=== PATIENT | female | born 1985 | race African-American/Black ===

== ENCOUNTER → 2018-09-16 10:43 | Outpatient (CLI) | payer OTHER, SELFPAY | PROVIDERS: Visit Provider Physician Assistant | DX: N89.8 Other specified noninflammatory disorders of vagina (principal) | CPT/HCPCS: 87210 ==

== ENCOUNTER → 2019-12-27 15:03 | Outpatient (CLI) | payer OTHER, SELFPAY ==
--- NOTE | 2019-12-27 15:07 | DI.US.S_ITS ---
PROCEDURE: US OB <= 14 WEEKS FETUS INDICATIONS: INITIAL US FOR DATING AND VIABILITY OUTSIDE/PRIOR DATING DATA: Last menstrual period (LMP): 10/01/19. LMP-based estimated date of delivery (HENRY): 07/07/20. First dating scan (date and location): 12/27/19. Estimated date of delivery (HENRY) from first dating scan: 07/16/20. TECHNIQUE: Real-time scanning was performed of the fetus and maternal pelvic organs, with image documentation. Endovaginal scanning was also performed to better visualize the fetus and maternal ovaries. COMPARISON: None. FINDINGS: Embryo: [place]-rump length measures 4.4 mm corresponding to 11 weeks 1 day heart rate measures 171 beats per minute. Measurement variability in dating: +/- 4 weeks by LMP, +/- 7 days by mean sac diameter (use before 6 weeks gestation if crown-rump length not able to be measured), +/- 5 days by crown-rump length (up to 8 weeks 6 days gestation), +/- 7 days by crown-rump length (up to 13 weeks 6 days gestation). Maternal organs: Right ovary not visualized. Normal left ovary.. Limited images through the kidneys demonstrate no hydronephrosis. IMPRESSION: 11 week 1 day single living IUP corresponding to ultrasound HENRY of 07/16/20. Dictated by: Vladimir BERRY Interpreted: Flora Torres MD on 12/27/2019 at 15:49 Approved by: Flora Torres M.D. on 12/27/2019 at 17:14
== END ==
PROVIDERS: Referring Provider Obstetrics & Gynecology; Visit Provider Obstetrics & Gynecology
DX: Z34.81 Encounter for supervision of other normal pregnancy, first trimester (principal); Z3A.11 11 weeks gestation of pregnancy
CPT/HCPCS: 76801

== ENCOUNTER → 2020-01-26 10:56 | Outpatient (CLI) | payer OTHER, SELFPAY ==
[2020-01-26 11:37] LABS: Appearance Urine UA CLEAR; Bilirubin Urine UA NEGATIVE (NEGATIVE); Color Urine UA YELLOW; Glucose Urine UA NEGATIVE (Negative); Ketones Urine UA NEGATIVE (NEGATIVE); Leukocyte Esterase Urine UA NEGATIVE (NEGATIVE); Nitrite Urine UA NEGATIVE (Negative); Occult Blood Urine UA NEGATIVE (Negative); Protein Urine UA NEGATIVE (Negative); Urobilinogen Urine UA 0.2 E.U./dL (0.2)
[2020-01-26 11:55] LABS: Add Manual Diff / Slide Review NO; Basophils Absolute Auto 0 /uL (0-100); Basophils Percent Auto 0.4 % (0-2); Eosinophils Absolute Auto 0 /uL (0-450); Eosinophils Percent Auto 0.5 % (2-4); Hematocrit 37.4 % (36-46); Hemoglobin 12.8 g/dL (12.0-16.0); Lymphocytes Absolute Auto 1500 /uL (1100-4500); Lymphocytes Percent Auto 17.2 % (25-40); Mean Corpuscular HGB Conc 34.3 % (30-36); Mean Corpuscular Hemoglobin 31.7 PG (26-34); Mean Corpuscular Volume 92.4 fL (80-100); Monocytes Absolute Auto 400 /uL (0-900); Monocytes Percent Auto 4.9 % (3-14); Neutrophils Absolute Auto 6800 /uL (1500-7000); Platelet Count 299 X10^3/uL (150-400); Red Blood Cell Count 4.05 X10^6/uL (4.0-5.2); Red Cell Distribution Width 12.3 % (11.6-14.8); White Blood Cell Count 8.8 X10^3/uL (4.5-11.0)
[2020-01-27 07:06] LABS: RPR Screen Non Reactive (Non Reactive)
[2020-01-27 08:08] LABS: Varicella IgG Antibody 2420 index (Immune >165)
[2020-01-27 15:35] LABS: Hepatitis B Surface Antigen NEGATIVE s/c (NEGATIVE); Rubella Antibody IgG 51.8 IU/mL (>15)
[2020-01-27 15:53] LABS: HIV 1 & 2 Ab/Ag 4th Gen Combo NEGATIVE (NEGATIVE)
[2020-01-27 16:49] LABS: Hep C Virus Ab w/Reflex Quant NEGATIVE s/c (NEGATIVE)
== END ==
PROVIDERS: PCP Obstetrics & Gynecology; Referring Provider Obstetrics & Gynecology; Visit Provider Obstetrics & Gynecology
DX: Z34.81 Encounter for supervision of other normal pregnancy, first trimester (principal)
CPT/HCPCS: 36415; 80055; 81003; 86787; 86803; 86850; 86900; 86901; 87086; 87389

== ENCOUNTER → 2020-02-21 07:42 | Outpatient (CLI) | payer OTHER, SELFPAY ==
--- NOTE | 2020-02-21 07:44 | DI.US.S_ITS ---
PROCEDURE: US OB >= 14 WEEKS FETUS INDICATIONS: ANATOMY OUTSIDE/PRIOR DATING DATA: Last menstrual period (LMP): 10/01/19. LMP-based estimated date of delivery (HENRY): 07/07/20. First dating scan (date and location): 12/27/19. Estimated date of delivery (HENRY) from first dating scan: 07/16/20. TECHNIQUE: Real-time scanning was performed of the fetus, with image documentation and biometric measurements. Endovaginal scanning: Not needed COMPARISON: None. FINDINGS: General: A single living intrauterine gestation is present. Presentation: Transverse head right. Placenta: Placental position is posterior, without previa. Amniotic fluid index: 14.4 cm, normal range is 5-24 cm. heart rate: 150 beats per minute. Maternal cervical canal: 4.4 cm long. Normal lower limit is 2.5 cm. biometrics: Biparietal diameter: 4.5 cm, 19 weeks 4 days Head circumference: 16.3 cm, 19 weeks 0 days Abdominal circumference: 13.3 cm, 18 weeks 6 days Femur length: 2.8 cm, 18 weeks 4 days Estimated gestational age from initial scan: not applicable. Composite gestational age from present scan: 19 weeks 0 days Estimated weight and percentile: 255 g, 24th percentile Measurement variability for biometric dating: +/- 7 days from 14 weeks to 15 weeks 6 days gestation, +/- 10 days from 16 weeks to 21 weeks 6 days gestation, +/- 2 weeks from 22 weeks to 27 weeks 6 days gestation, +/- 3 weeks for 28 weeks gestation or later. weight reference: 4500 g or EFW >90/95% is considered macrosomia or large for gestational age. EFW <10% is small for gestational age. EFW 5% or less is considered intra-uterine growth restriction. Anatomic survey: Neuro: Ventricles are non-dilated at less than 10 mm. Cisterna magna is normal at 3-11 mm. Cerebellum is normal in size and morphology. Nuchal skin fold: Normal at less than 6 mm between 14-21 weeks gestational age. Face: Nose and lips, facial profile are not well seen due to positioning. Spine: No evidence for spina bifida. Heart: 4-chambered heart is present, with normal ventricular outflow tracts. Diaphragm: Diaphragm is intact. Stomach: Left-sided stomach is present. Kidneys: No hydronephrosis. Normal is less than 5 mm in 2nd trimester, less than 7 mm in 3rd trimester. Cord: 3-vessel cord has orthotopic insertion. Bladder: Normal in size. Extremities: All 4 extremities identified. IMPRESSION: Appropriate interval growth, no anomaly seen. The facial region was relatively poorly seen due to positioning. If clinically desired a followup limited anatomic survey completion scan could be performed in approximately one week. The delivery date is projected be centered on 07/16/20. Dictated by: Dale Ordoñez M.D. on 02/21/2020 at 9:47 Approved by: Dale Ordoñez M.D. on 02/21/2020 at 9:53
== END ==
PROVIDERS: PCP Obstetrics & Gynecology; Referring Provider Obstetrics & Gynecology; Visit Provider Obstetrics & Gynecology
DX: Z34.82 Encounter for supervision of other normal pregnancy, second trimester (principal); Z3A.19 19 weeks gestation of pregnancy
CPT/HCPCS: 76811

== ENCOUNTER → 2020-04-21 15:35 | Outpatient (CLI) | payer OTHER, SELFPAY ==
[2020-04-21 17:30] LABS: Hematocrit 32.5 % (36-46); Hemoglobin 11.1 g/dL (12.0-16.0)
[2020-04-21 17:37] LABS: GTT (PREG) 1 Hour PP 50gm Dose 134 mg/dL (76-139)
== END ==
PROVIDERS: PCP Obstetrics & Gynecology; Referring Provider Obstetrics & Gynecology; Visit Provider Obstetrics & Gynecology
DX: Z34.82 Encounter for supervision of other normal pregnancy, second trimester (principal); Z3A.23 23 weeks gestation of pregnancy
CPT/HCPCS: 82950; 85014; 85018

== ENCOUNTER → 2020-06-13 16:15 | Outpatient (CLI) | payer OTHER, SELFPAY ==
[2020-06-14 19:27] LABS: Strep Grp B PCR NEG for Grp B Strep
--- NOTE | 2020-07-21 10:19 | PM.OBTRLD ---
[facility] Medical History (Updated 12/24/19 @ 14:46 by Katia Jacob RN) Abnormal Pap smear of cervix (Resolved 2013) Depression (Acute) Febrile seizure (Acute) Thumb fracture (Acute) Vaginal delivery (Resolved) Surgical History (Updated 12/24/19 @ 14:46 by Katia Jacob, ADRIENNE) [place] teeth removed (Acute ~2005) Family History (Updated 12/24/19 @ 14:42 by Katia Jacob RN) Mother No problems noted. Father Hypertension Grandfather Tuberculosis Grandmother No problems noted. Grandfather Diabetes mellitus Myocardial infarction Grandmother Cancer Social History marital status: number of children: 1 household members: spouse and children pets and animals: Yes (Outdoor cats) occupational status: employed ([employer]) current occupational exposures/hazards: No special radha needs: No Smoking Status: Current some day smoker (once in a while So takes a puff) Tobacco: How many years used: 12 quit status: not considering quitting second hand exposure: Yes ( smokes and aware) alcohol intake: former (pre- : occasional) substance use type: does not use Evaluation Evaluation Laboratory results: Laboratory Tests 06/13/20 16:15 Group B Strep (PCR) Neg for grp b strep
== END ==
PROVIDERS: PCP Obstetrics & Gynecology; Visit Provider Obstetrics & Gynecology
DX: Z34.83 Encounter for supervision of other normal pregnancy, third trimester (principal); Z3A.35 35 weeks gestation of pregnancy
CPT/HCPCS: 87653

== ENCOUNTER 2020-07-21 10:27 | Outpatient (CLI) | payer OTHER, SELFPAY ==
--- NOTE | 2020-07-21 11:07 | PM.OBTRLD ---
Visit Information Visit Information Date of evaluation: 07/21/20 Primary OB Provider: Radhika Romero Reason for Evaluation: Yes non-stress test Comments/Additional reasons for admission: Patient is a 34yo @40+5 sent for NST as part of routine postdates testing. Vital Signs Vital Signs: 116/70, HR 80 PFSH Medical History Abnormal Pap smear of cervix (Resolved 2013) Depression (Acute) Febrile seizure (Acute) Thumb fracture (Acute) Vaginal delivery (Resolved) Surgical History [place] teeth removed (Acute ~2004) Family History Mother No problems noted. Father Hypertension Grandfather Tuberculosis Grandmother No problems noted. Grandfather Diabetes mellitus Myocardial infarction Grandmother Cancer Social History marital status: number of children: 1 household members: spouse and children pets and animals: Yes (Outdoor cats) occupational status: employed ([employer]) current occupational exposures/hazards: No special radha needs: No Smoking Status: Current some day smoker (once in a while So takes a puff) Tobacco: How many years used: 12 quit status: not considering quitting second hand exposure: Yes ( smokes and aware) alcohol intake: former (pre- : occasional) substance use type: does not use Review of Systems Constitutional Constitutional: Reports system reviewed and no additional complaints, except as documented Evaluation Evaluation Baseline heart rate: 135 Variability: Moderate (11-25) monitor accelerations: Present monitor decelerations: Early (x1) Contraction Frequency (minutes): 5 Category of Tracing: Reactive Diagnosis, Plan/Disposition Plan/Disposition Plan: Home with routine precautions. OB Disposition: home
[2020-07-21 11:30] LABS: COVID19 -Nasal RAPID Negative (Negative)
== END 2020-07-21 11:15 | disposition home or self-care (01) ==
LOC: LABOR 11:36 → OB 07-24 16:28
PROVIDERS: PCP Obstetrics & Gynecology; Referring Provider Obstetrics & Gynecology; Visit Provider Obstetrics & Gynecology
DX: O48.0 Post-term pregnancy (principal); Z3A.40 40 weeks gestation of pregnancy; Z11.59 Encounter for screening for other viral diseases
CPT/HCPCS: 59025; 87635; G0378; G0379

== ENCOUNTER 2020-07-24 10:03 | Inpatient (IN) | payer OTHER, SELFPAY ==
[2020-07-24] MEDS: LACTATED RINGERS 1,000 ML 100 ML IV ×4 (10:39→17:02)
[2020-07-24] MEDS: OXYTOCIN PREMIX 30 UNIT/500 ML PLAST..BAG IV (10:40)
[2020-07-24 10:57] VITALS: BP 130/84
[2020-07-24 11:01] LABS: Add Manual Diff / Slide Review NO; Basophils Absolute Auto 100 /uL (0-100); Basophils Percent Auto 1.5 % (0-2); Eosinophils Absolute Auto 0 /uL (0-450); Eosinophils Percent Auto 0.2 % (2-4); Hematocrit 36.2 % (36-46); Hemoglobin 12.1 g/dL (12.0-16.0); Lymphocytes Absolute Auto 2300 /uL (1100-4500); Lymphocytes Percent Auto 23.5 % (25-40); Mean Corpuscular HGB Conc 33.5 % (30-36); Mean Corpuscular Hemoglobin 31.6 PG (26-34); Mean Corpuscular Volume 94.4 fL (80-100); Monocytes Absolute Auto 400 /uL (0-900); Monocytes Percent Auto 4.4 % (3-14); Neutrophils Absolute Auto 7000 /uL (1500-7000); Neutrophils Percent Auto 70.4 % (50-75); Platelet Count 294 X10^3/uL (150-400); Red Blood Cell Count 3.83 X10^6/uL (4.0-5.2); Red Cell Distribution Width 13.4 % (11.6-14.8); White Blood Cell Count 9.9 X10^3/uL (4.5-11.0)
--- NOTE | 2020-07-24 11:04 | PM.OBHP.1 ---
OB HPI Date/Time Date of admission: 07/24/20 Date Patient Seen: 07/24/20 Time Patient Seen: 11:04 History of Present Condition Chief complaint: Induction : 2 Para: 1 Estimated Date of Delivery: 07/16/20 Estimated Gestational Age (weeks): 41 Narrative: So Cardoza is a 34 year old 001 at 41 weeks 1 day presenting for postdates induction. Patient reports feeling well with few contractions, no loss of fluid or vaginal bleeding, good movement, no other complaints obstetrical or otherwise. Patient has had an uncomplicated , though with advanced cervical dilation since 38 weeks. Patient has a history of prior vacuum assisted vaginal delivery 9 years ago, for a just under 6 lb baby. Patient reports this is after 45 minutes of pushing and due to patient fatigue. She has no other contributory medical, surgical, or family history. Indications Indication for induction OB: post dates History of Present care: good care, initiated at week # (11), number of visits (16) and pounds weight gain (27) Dating criteria: based on 1st trimester US only Ultrasounds: normal 1st trimester US and normal mid trimester US Obstetrical complications: none Medical complications: none Preadmission Labs -: GBS status: negative, HBsAG: negative, HIV: negative and RPR/VDLR: negative -: Rubella: immune and Varicella: immune Sequential screen: initially interested in quad screen but did not get blood draw during window. Urine: wnl 1 hr GTT: 134 Prior (ies) History: G1: 02/06/11, VAVD, 38+5, 5#14, F Evaluation Evaluation Baseline heart rate: 135 Variability: Moderate (11-25) monitor accelerations: Present monitor decelerations: Absent Category of Tracing: Reactive Cervical dilation (cm): 5 Cervical effacement (%): 100 station: -1 Laboratory results: Laboratory Tests 07/24/20 10:58 WBC 9.9 RBC 3.83 L Hgb 12.1 Hct 36.2 MCV 94.4 MCH 31.6 MCHC 33.5 RDW 13.4 Plt Count 294 Neut % (Auto) 70.4 Lymph % (Auto) 23.5 L [place] % (Auto) 4.4 Eos % (Auto) 0.2 L Baso % (Auto) 1.5 Neut # (Auto) 7000 Lymph # (Auto) 2300 [place] # (Auto) 400 Eos # (Auto) 0 Baso # (Auto) 100 PFSH Medical History Abnormal Pap smear of cervix (Resolved 2013) Depression (Acute) Febrile seizure (Acute) Thumb fracture (Acute) Vaginal delivery (Resolved) Surgical History [place] teeth removed (Acute ~2004) Family History Mother No problems noted. Father Hypertension Grandfather Tuberculosis Grandmother No problems noted. Grandfather Diabetes mellitus Myocardial infarction Grandmother Cancer Social History marital status: number of children: 1 household members: spouse and children pets and animals: Yes (Outdoor cats) occupational status: employed ([employer]) current occupational exposures/hazards: No special radha needs: No Smoking Status: Current some day smoker Tobacco: How many years used: 12 quit status: not considering quitting second hand exposure: Yes ( smokes and aware) alcohol intake: former (pre- : occasional) substance use type: does not use Meds Home Medications and Allergies Home Medications Medication Instructions Recorded Confirmed Type prenat.vits,adarsh,wmj-[id number] 1 tab PO DAILY 12/24/19 07/24/20 History Allergies Allergy/AdvReac Type Severity Reaction Status Date / Time No Known Drug Allergies Allergy Verified 07/21/20 09:59 Review of Systems Constitutional Constitutional: Reports system reviewed and no additional complaints, except as documented Cardiovascular Cardiovascular: Reports system reviewed and no additional complaints, except as documented Respiratory Respiratory: Reports system reviewed and no additional complaints, except as documented Gastrointestinal Gastrointestinal: Reports system reviewed and no additional complaints, except as documented Genitourinary Genitourinary: Reports system reviewed and no additional complaints, except as documented Neurologic Neurologic: Reports system reviewed and no additional complaints, except as documented Exam Vital Signs (past 8 hours): -130/84, HR 94 07/24/20 10:57 Blood Pressure 130/84 Const General: cooperative, healthy appearing and comfortable Resp Effort & Inspection: normal respiratory effort Auscultation: clear to auscultation bilaterally Cardio Rate: regular rate Rhythm: regular rhythm GI Palpation: soft and No tender External Female Exam: normal external appearance Extrem General: normal to inspection Objective Labs Result Diagrams: 07/24/20 10:58 Labs: Laboratory Results - last 24 hr 07/24/20 10:58 WBC 9.9 RBC 3.83 L Hgb 12.1 Hct 36.2 MCV 94.4 MCH 31.6 MCHC 33.5 RDW 13.4 Plt Count 294 Neut % (Auto) 70.4 Lymph % (Auto) 23.5 L [place] % (Auto) 4.4 Eos % (Auto) 0.2 L Baso % (Auto) 1.5 Neut # (Auto) 7000 Lymph # (Auto) 2300 [place] # (Auto) 400 Eos # (Auto) 0 Baso # (Auto) 100 Assessment and Plan Assessment and Plan Assessment and Plan narrative: This patient presents for induction of labor. The patient has advanced cervical dilation, and will be for a room after return of her lab results. - cEFM, toco - IV fluids running - repeat GBS due to interval since last exam - covid negative - anticipate vaginal delivery
[2020-07-24 11:57] LABS: Strep Grp B PCR NEG for Grp B Strep
--- NOTE | 2020-07-24 14:33 | P.PNOB_ITS ---
Date/Time Date Patient Seen: 07/24/20 Time Patient Seen: 14:33 Pain Control Pain control: other (Spinal, patient tolerating pain and pressure poorly) Pelvic Exam Dilation (cm): 10 Effacement (%): 100 station: +2 Amniotic membrane status: Ruptured Contractions Pitocin rate (mU/min): 0 Contraction frequency (min): 3 Status status: Category ll Heart Rate Baseline: 135 Monitor Accelerations: Present Monitor Decelerations: Recurrent (Variable and late) Monitor Variability: Moderate Assessment and Plan Plan: Comments: This patient presented for induction of labor. The patient presented at approximately 10:15 a.m., matthias Q 3-4. Pitocin was started and the patient remained comfortable. As she had advanced cervical dilation at baseline, AROM was performed for clear fluid. In half an hour after AROM, the patient progressed rapidly to fully dilated and became quite uncomfortable. A spinal was placed, as the patient was progressing rapidly, stooling with contractions, thought to be about to deliver. After the spinal, the patient was more comfortable was found to be in in +1 presentation. Pushing began, with poor maternal effort. After some coaching, the patient made improved effort, with no descent of the vertex past 2+ presentation and increasing caput. The fetus tolerated contractions with [place] variable decelerations, though with return to a baseline of 135 with moderate variability in between or during breaks in pushing. After 2 hours of pushing, the patient voiced a desire for assisted , either from below or via section. The patient was asse ssed by myself and Dr. Vazquez and thought to be a candidate for neither vacuum or forceps delivery, due to the lack of mobility of the presenting part and the rest of descent. Primary section was discussed with the patient her partner, including the risk of infection, bleeding, damage to bowel bladder, and risks to future pregnancies. The patient vocalized understanding, informed consent was obtained.
--- NOTE | 2020-07-24 14:33 | PM.PREOP ---
Pre-operative Note COVID-19 COVID-19 status: Negative Result date/Date tested (Pos, Neg/Pending): 07/24/20 Interval Note History & Physical reviewed/Exam performed by Physician: Yes Changes to H&P: No
[2020-07-24] MEDS: CEFAZOLIN 2 GM/100 ML FROZ.PIGGY IV (14:44)
--- NOTE | 2020-07-24 15:18 | SUR.OPER ---
Supine on Padded OR bed, head on pillow, safety belt at thigh, arms secured on padded arm boards at <90 degrees abduction. Bump under right buttock. Legs uncrossed with pillow under knees, gel pad to heels, tape over blanket to lower legs.
--- NOTE | 2020-07-24 15:30 | SUR.OPER ---
FHTs 135, cord blood x2 and placenta sent to L&D with OB nurse, TOB live male at 1525.
[2020-07-24] MEDS: AZITHROMYCIN 500 MG in DEXTROSE 5% IN WATER 250 ML IV (15:34)
[2020-07-24] MEDS: ACETAMINOPHEN IV 1,000 MG/100 ML VIAL 400 MG IV (15:36)
[2020-07-24 16:15] VITALS: BP 96/51; PULSE 76; RESP 19; TEMP 35.9; O2SAT 97
[2020-07-24 16:20] VITALS: BP 96/52; PULSE 77; RESP 17; O2SAT 97
--- NOTE | 2020-07-24 16:22 | P.OP_ITS ---
Operative Date/Time/Diagnoses Date of procedure: 07/24/20 Time of procedure: 15:10 Pre-op diagnosis: arrest of descent, intolerance of labor Post-op diagnosis: same Procedure & Clinicians Procedure: primary section Same procedure as scheduled: Yes Indications: cat 2 EFM, arrest of descent with pushing Surgeon: Radhika Romero Learning Disabilities Resource Teacher: Shahnaz Vazquez Anesthesia Type: Spinal Operative Notes Findings: normal uterus, tubes, ovaries. Male in OP, asynclitic presentation. Apgars 8+9. weight 7#8. Closure Type: primary Applied: catheter Estimated Blood Loss (mL): 700 Blood products transfused: none Procedure in detail: EBL: 700 cc Fluids:1550ccs UOP: 50ccs of yellow urine Findings: Male infant in cephalic, OP presentation, Apgars 8+9, weight 7#8, normal uterus, tubes, ovaries. Procedures: The patient was taken to the operating room where spinal anesthesia was placed. She was prepped and draped in the normal sterile fashion in the dorsal supine position with a leftward tilt. A Pfannenstiel skin incision was made with a scalpel and carried through to the underlying layer of fascia. The fascia was incised in the midline and the incision extended laterally with [place] scissors. The superior aspect of this incision was grasped with Ivonne clamps, elevated. and the underlying rectus muscles dissected off bluntly and with curved [place] scissors. Attention was then turned to the inferior aspect of this incision which, in a similar fashion, was grasped, tented up with the Ivonne clamps, and the rectus muscles dissected off bluntly. The rectus muscles were then in the midline, and the peritoneum identified, tented up, and entered sharply with Metzenbaum scissors. The peritoneal incision was extended superiorly and inferiorly with good visualization of the bladder. The bladder blade was inserted and the vesico uterine peritoneum identified, grasped with pickups, and entered sharply with the Metzenbaum scissors. This incision was extended laterally, and the bladder flap created digitally. The bladder blade was then reinserted and the lower uterine segment incised in transverse fashion with the scalpel. The uterine incision was bluntly extended laterally. The bladder blade was removed, and the infant's head delivered atraumatically with a push up from below. The cord was clamped and cut. The nose and mouth were suctioned as needed with a bulb synringe, and the was handed off to awaiting pediatricians. The placenta was then removed spontaneously, and the uterus was exteriorized and cleared of all clots and debris. The uterine incision was repaired with 1-0 chromic in a running, locked fashion and a 2nd layer of the same suture was used to obtain excellent hemostasis. The uterus was returned to the abdomen, and the gutters were cleared of all clots and debris. The bladder flap was closed with 2-0 Vicryl in a running fashion. The peritoneum was closed with 3-0 Vicryl, and the fascia reapproximated with 0 Vicryl in a running fashion. The subcutaneous layer was placed with 3 0 Vicryl in an interrupted fashion and the skin was closed with 4-0 biosyn in a running fashion. The patient tolerated the procedure well sponge lap and needle counts were correct x2. 2 g of Ancef and 500 mg of azithromycin were given at commencement of the case, and a vaginal prep performed with Betadine as well as the abdominal prep. The patient was taken to the recovery room in stable condition. Complications: none Post-operative Condition: stable Disposition: PACU Plan for aftercare: Routine postop care.
[2020-07-24 16:25] VITALS: BP 105/52; PULSE 80; RESP 20; O2SAT 97
[2020-07-24 16:30] VITALS: BP 99/45; PULSE 82; RESP 16; TEMP 35.7; O2SAT 96
[2020-07-24 16:35] VITALS: BP 99/48; PULSE 82; RESP 12; O2SAT 96
--- NOTE | 2020-07-24 16:36 | SUR.PHASEI ---
Report called to Gagandeep Norris&D RN 5 minutes ago, pt stable and will get ready to transfer
[2020-07-24] MEDS: KETOROLAC 30 MG/ML VIAL IV (21:40)
[2020-07-24] MEDS: LANOLIN OINT 7 GM 1 APPLIC TOP (23:51)
[2020-07-24] MEDS: ONDANSETRON 4 MG/2 ML INJ IV (23:52)
[2020-07-25] MEDS: OXYCODONE IR 5 MG TABLET PO ×4 (00:50→20:12)
[2020-07-25] MEDS: KETOROLAC 30 MG/ML VIAL IV ×2 (03:48→10:01)
[2020-07-25] MEDS: LACTATED RINGERS 1,000 ML 100 ML IV (03:48)
--- NOTE | 2020-07-25 08:05 | PM.OBPN.1 ---
Subjective - OB Subjective Patient comments: no complaints, pain well controlled and tolerating diet baby status: doing well feeding status: exclusively breast feeding Date Patient Seen: 07/25/20 Interval history: Patient with good pain control, moderate lochia, mid VT, passing flatus, tolerating PO, no other complaints. Exam Vital Signs (past 8 hours): VSS Oxygen Delivery Method Room Air Resp Effort & Inspection: normal respiratory effort Auscultation: clear to auscultation bilaterally Cardio Rate: regular rate Rhythm: regular rhythm GI Inspection: incision (c/d/i) Palpation: soft and tender Other: fundus firm, below u Objective Labs Result Diagrams: 07/25/20 10:40 Labs: Laboratory Results - last 24 hr 07/24/20 07/24/20 07/24/20 10:58 10:58 10:58 WBC 9.9 RBC 3.83 L Hgb 12.1 Hct 36.2 MCV 94.4 MCH 31.6 MCHC 33.5 RDW 13.4 Plt Count 294 Neut % (Auto) 70.4 Lymph % (Auto) 23.5 L [place] % (Auto) 4.4 Eos % (Auto) 0.2 L Baso % (Auto) 1.5 Neut # (Auto) 7000 Lymph # (Auto) 2300 [place] # (Auto) 400 Eos # (Auto) 0 Baso # (Auto) 100 Group B Strep (PCR) Neg for grp b strep Blood Type O Positive Antibody Screen Negative Assessment & Plan Plan day: 1 plan OB: routine postop care Comments: Patient meeting postop goals appropriately, for routine postop care. Time Spent With Patient Time: Total time spent is greater than 50% in coordination of care (as documented) at patient's floor/unit and/or counseling patient: Time with patient: less than 15 minutes
[2020-07-25] MEDS: DOCUSATE 250 MG CAPSULE PO (08:43)
[2020-07-25 08:44] VITALS: TEMP 36.9
[2020-07-25] MEDS: PRENATAL VIT,CALC/IRON/FOLIC 1 TABLET 1 TAB PO (10:01)
[2020-07-25 10:49] LABS: Add Manual Diff / Slide Review NO; Basophils Absolute Auto 0 /uL (0-100); Basophils Percent Auto 0.3 % (0-2); Eosinophils Absolute Auto 0 /uL (0-450); Eosinophils Percent Auto 0.1 % (2-4); Hematocrit 28.4 % (36-46); Hemoglobin 9.5 g/dL (12.0-16.0); Lymphocytes Absolute Auto 1600 /uL (1100-4500); Lymphocytes Percent Auto 10.2 % (25-40); Mean Corpuscular HGB Conc 33.4 % (30-36); Mean Corpuscular Volume 92.8 fL (80-100); Monocytes Absolute Auto 900 /uL (0-900); Monocytes Percent Auto 5.5 % (3-14); Neutrophils Absolute Auto 13600 /uL (1500-7000); Neutrophils Percent Auto 83.9 % (50-75); Platelet Count 243 X10^3/uL (150-400); Red Blood Cell Count 3.07 X10^6/uL (4.0-5.2); Red Cell Distribution Width 13.1 % (11.6-14.8); White Blood Cell Count 16.2 X10^3/uL (4.5-11.0)
[2020-07-25] MEDS: IBUPROFEN 600 MG TABLET PO (18:12)
[2020-07-26] MEDS: IBUPROFEN 600 MG TABLET PO ×2 (00:50→07:05)
[2020-07-26] MEDS: ACETAMINOPHEN 325 MG TABLET 650 MG PO ×2 (07:05→13:37)
[2020-07-26 07:56] VITALS: BP 111/67; PULSE 76; RESP 12; TEMP 36.9
--- NOTE | 2020-07-26 10:03 | P.DS_ITS ---
Discharge Providers Provider Date of admission: 07/24/20 10:03 Discharge Date: 07/26/20 Primary care physician: Radhika Romero MD Consults: 07/24/20 16:46 Consult to [employer] Routine Comment: Discharge provider: Radhika Romero MD Summary Hospital Course Date Patient Seen: 07/26/20 Time Patient Seen: 10:04 Procedures: primary section Hospital Course: This patient was admitted for induction of labor for postdates and advanced c ervical dilation. Pitocin was started, and she underwent AROM. She received spinal for anesthesia, and after rapid active 1st stage, progressed to fully dilated. After 2 hours 2nd stage, she was noted to have arrested at +2 station, with category 2 tracing. position was not amenable to operative delivery, and she was taken for primary section. The procedure was uncomplicated, and she was delivered of a healthy baby boy, 7 lb 8 oz, OP presentation. Her intraoperative and postoperative course were uneventful, and she was discharged on postoperative day 2 with routine precautions. Peripartum Data Delivery Method: Section Procedures: Primary section complications: none 1: Gender: Male Disposition of : home Status at Discharge Cognitive/behavioral status at discharge: oriented Functional status at discharge: independent ambulation Overall status at discharge: patient is progressing back to baseline Time Spent with Patient Time attestation: Total time spent providing and/or coordinating discharge services: Time spent: Greater than 30 minutes Objective Labs Result Diagrams: 07/25/20 10:40 Labs: Laboratory Results - last 24 hr 07/25/20 10:40 WBC 16.2 H D RBC 3.07 L Hgb 9.5 L Hct 28.4 L MCV 92.8 MCH 31.0 MCHC 33.4 RDW 13.1 Plt Count 243 Neut % (Auto) 83.9 H Lymph % (Auto) 10.2 L [place] % (Auto) 5.5 Eos % (Auto) 0.1 L Baso % (Auto) 0.3 Neut # (Auto) 13988 H Lymph # (Auto) 1600 [place] # (Auto) 900 Eos # (Auto) 0 Baso # (Auto) 0 Exam Vital Signs (past 8 hours): 111/67, HR 76, T 98.5F 07/26/20 07:56 Temperature 98.5 F Pulse Rate 76 Respiratory Rate 12 Blood Pressure 111/67 Oxygen Delivery Method Room Air Narrative Exam Narrative: Patient ambulating about exam room. Reports good pain control, tolerating p.o., flatus, voiding, moderate lochia, no other complaints. Const General: cooperative, healthy appearing and comfortable Resp Effort & Inspection: normal respiratory effort Auscultation: clear to auscultation bilaterally Cardio Rate: regular rate Rhythm: regular rhythm GI Inspection: distended (Mild, tympanic) and incision (Clean, dry, covered by Aquacel) Palpation: soft and No tender Other: Fundus firm, well below U Skin General: no rashes or lesions noted Extrem General: normal to inspection Discharge Plan Discharge Plan Patient Disposition: Home Discharge orders & Medications Prescriptions: New docusate sodium 100 mg capsule 100 mg PO BID Qty: 60 RF: 0 oxycodone 5 mg tablet 5 mg PO Q8H PRN (Reason: pain) Qty: 14 RF: 0 Continued prenat.vits,adarsh,[id number] Tablet 1 tab PO DAILY RF: 0 Follow up/Referrals: Radhika Romero MD [Primary Care Provider] - 1 Week (incision check) Diet/Activity/Treatments Diet: Regular Activity: Nothing in the vagina for 6 weeks. Avoid heavy lifting for 6 weeks. If you have increasing bleeding, fevers, chills, nausea, vomiting, headaches, or any other concerning symptoms, call or come to the emergency room. Skin/Wound/Dressing Care Report to your healthcare provider any signs of infection, such as:: chills, fever, night sweats, increased pain, unusual drainage and unusual redness Visit Report/Discharge Packet Instructions: DI for Visit Report Forms: Patient Portal/API, Stroke Signs & Symptoms Discharge Data Primary Care Provider: Radhika Romero
[2020-07-26] MEDS: OXYCODONE IR 5 MG TABLET PO (13:37)
== END 2020-07-26 15:05 | disposition home or self-care (01) | DRG 788 ==
PROVIDERS: Admitting Provider Obstetrics & Gynecology; PCP Obstetrics & Gynecology; Referring Provider Obstetrics & Gynecology; Visit Provider Obstetrics & Gynecology
PROC: 10D00Z1 Extraction of Products of Conception, Low, Open Approach (ICD-10-PCS; CPT 59514; principal; 2020-07-24 14:45)
DX: O48.0 Post-term pregnancy (principal); Z3A.41 41 weeks gestation of pregnancy; Z37.0 Single live birth; O62.1 Secondary uterine inertia; O76 Abnormality in fetal heart rate and rhythm complicating labor and delivery
CPT/HCPCS: 01967; 01968; 59050; 59510; 59514; 85025; 86850; 86900; 86901; 87081; 87653; G0379; J0131; J0690; J1885; J2274; J2405; J2590

== ENCOUNTER → 2020-08-03 11:27 | Outpatient (CLI) | payer OTHER, SELFPAY | PROVIDERS: PCP Obstetrics & Gynecology; Visit Provider Physician Assistant | DX: R30.0 Dysuria (principal) | CPT/HCPCS: 87077; 87086 ==

== ENCOUNTER → 2020-08-11 07:18 | Outpatient (CLI) | payer OTHER, SELFPAY ==
[2020-08-11 10:32] LABS: Appearance Urine UA SL CLOUDY; Bilirubin Urine UA NEGATIVE (NEGATIVE); Color Urine UA YELLOW; Glucose Urine UA NEGATIVE (Negative); Ketones Urine UA NEGATIVE (NEGATIVE); Leukocyte Esterase Urine UA 2+ (NEGATIVE); Nitrite Urine UA NEGATIVE (Negative); Occult Blood Urine UA 3+ (Negative); Protein Urine UA NEGATIVE (Negative); Urobilinogen Urine UA 0.2 E.U./dL (0.2)
[2020-08-11 11:02] LABS: pH Urine UA 5.5 (4.5-8.0)
[2020-08-11 11:09] LABS: Bacteria Urine Many (>30); Culture Indicated Urine Specimen Cultured; Mucus Urine 2+ (Negative); RBC Urine 30-100/HPF (0-5/HPF); Transitional Epi Cells Urine 1-5/HPF (0-5/HPF); WBC Urine 30-100/HPF (0-5/HPF)
== END ==
PROVIDERS: Referring Provider Obstetrics & Gynecology; Visit Provider Obstetrics & Gynecology
DX: N39.0 Urinary tract infection, site not specified (principal)
CPT/HCPCS: 81001; 87086

== ENCOUNTER → 2022-05-20 07:48 | Outpatient (CLI) | payer OTHER, SELFPAY | PROVIDERS: Visit Provider Student in an Organized Health Care Education/Training Program | DX: R30.0 Dysuria (principal) | CPT/HCPCS: 87077; 87086; 87186 ==

== ENCOUNTER → 2022-07-10 11:39 | Outpatient (CLI) | payer OTHER, SELFPAY | PROVIDERS: Visit Provider Nurse Practitioner Family | DX: N89.8 Other specified noninflammatory disorders of vagina (principal); R30.0 Dysuria | CPT/HCPCS: 87086; 87210 ==

== ENCOUNTER → 2023-04-15 11:03 | Outpatient (CLI) | payer OTHER, SELFPAY | PROVIDERS: Visit Provider Student in an Organized Health Care Education/Training Program | DX: R30.0 Dysuria (principal) | CPT/HCPCS: 87077; 87086; 87186 ==

== ENCOUNTER → 2023-05-20 15:16 | Outpatient (CLI) | payer OTHER, SELFPAY | PROVIDERS: Visit Provider Student in an Organized Health Care Education/Training Program | DX: N39.0 Urinary tract infection, site not specified (principal) | CPT/HCPCS: 87086 ==

== ENCOUNTER → 2023-10-12 15:40 | Outpatient (CLI) | payer OTHER, SELFPAY | PROVIDERS: Visit Provider Registered Nurse | DX: R30.0 Dysuria (principal) | CPT/HCPCS: 87077; 87086; 87186 ==

== ENCOUNTER 2024-01-06 13:01 | Emergency (ER) | payer OTHER, SELFPAY ==
[2024-01-06 13:07] VITALS: BP 152/65; PULSE 94; RESP 20; TEMP 36.6; O2SAT 100; BMI 21.9
--- NOTE | 2024-01-06 13:25 | DI.US.S_ITS ---
PROCEDURE: US OB <= 14 WEEKS FETUS INDICATIONS: spotting, LMP 11/22/2023; 6w4d OUTSIDE/PRIOR DATING DATA: Last menstrual period (LMP): November 22, 2023. LMP-based estimated date of delivery (HENRY): Not provided. Estimated date of delivery (HENRY) from first dating scan: Not applicable. TECHNIQUE: Real-time scanning was performed of the fetus and maternal pelvic organs, with image documentation. Endovaginal scanning was also performed to better visualize the fetus and maternal ovaries. COMPARISON: None. FINDINGS: Embryo: No intrauterine identified. No gestational sac, yolk sac or pole identified. Maternal organs: Uterus is anteverted. Uterus measures 9.4 x 4.9 x 5.2 centimeters. Endometrial complex measures 17.9 millimeters in thickness. Uterus echotexture is homogeneous. Right ovary measures 3.4 x 3.2 x 1.7 centimeters. There is a 1.4 x 0.9 x 1.1 centimeter complex cyst in the right ovary. Left ovary measures 2.2 x 3.2 x 1.2 centimeters. Left ovary is sonographically normal. Doppler evaluation demonstrates normal vascular flow in the ovaries. IMPRESSION: No intrauterine identified. Findings could be secondary to early , nonviable or occult ectopic . Recommend close clinical observation, correlation with serial beta HCG and short-term follow-up obstetrical ultrasound in 1-2 weeks. 1.4 x 0.9 x 1.1 centimeter complex right ovarian cyst. Finding could represent corpus luteal cyst or early ectopic . Recommend close clinical observation, correlation with serial beta HCG and short-term follow-up obstetrical ultrasound in 1-2 weeks. Dictated by: Yvonne Sheehan MD, PhD on 01/06/2024 at 14:35 Approved by: Yvonne Sheehan MD, PhD on 01/06/2024 at 14:40
--- NOTE | 2024-01-06 13:30 | ED_ITS ---
HPI - <Peggy Hebert PA-C - Last Filed: 01/06/24 20:25> General Chief complaint: Vaginal Bleeding Stated complaint: couple wks , spotting Time Seen by Provider: 01/06/24 13:24 Source: patient Mode of arrival: Ambulatory History of Present Illness HPI Narrative: 38yo F presents with concern for light spotting and mild pelvic cramping, LMP Nov 22, which was a normal period for her; had a positive home test on December 27. Patient states that she has had 2 live births, last year she had an at 7 weeks, and in the last 5 years she also had what she believes was a miscarriage as she had a late period that lasted for a long time and was heavy although she never had a positive test. Patient states that her current is desired. Last night she had a couple drops of dark blood in her underwear, she had nothing overnight but then later this morning had some additional spotting she says the blood was still dark red in color. Most recently when she wiped after peeing she says there was ?a bit more blood? on the toilet paper; she has not wearing a pad and has not had any persistent bleeding. She has also had some very mild cramping this morning it feels similar to light menstrual cramps. She has otherwise been in her usual state of health eating and drinking normally with no constipation diarrhea nausea or vomiting. She denies any overt abdominal pain or any heavy bleeding also denies dizziness lightheadedness. Related Data Previous Rx's Medication Instructions Recorded desogestrel-e.estradiol 0.15 See Rx Instructions .Route 09/18/ mg-0.02 mg(21)/e.estrad 0.01 mg(5) .COMPLEX #84 tabs tablet (Volnea (28)) Allergies Allergy/AdvReac Type Severity Reaction Status Date / Time No Known Drug Allergies Allergy Verified 01/06/24 13:12 Review of Systems <Peggy Hebert PA-C - Last Filed: 01/06/24 20:25> Review of Systems Narrative: See HPI Exam <Peggy Hebert PA-C - Last Filed: 01/06/24 20:25> Narrative Exam Narrative: GENERAL: [38] year old patient appears stated age. Well-developed patient, in mild distress. HEAD: Atraumatic. Normocephalic. EYES: Pupils equal round and reactive. Extraocular motions intact. No scleral icterus. No injection or drainage. ENT: Nose without bleeding, purulent drainage. Airway patent. NECK: Trachea midline. CARDIOVASCULAR: Regular rate and rhythm without murmurs, gallops, or rubs. RESPIRATORY: Clear to auscultation. Breath sounds equal bilaterally. No wheezes, rales, or rhonchi. GASTROINTESTINAL: Abdomen soft, there is very mild tenderness over the pelvis midline/suprapubic otherwise non-tender, nondistended. EXTREMITIES: No edema or joint tenderness. BACK:No flank tenderness. NEURO: AOx3. SKIN: No rash or erythema of visible areas Initial Vital Signs Initial Vital Signs: Vital Signs Temperature 98 F 01/06/24 13:07 Pulse Rate 94 H 01/06/24 13:07 Respiratory Rate 20 01/06/24 13:07 Blood Pressure 152/65 H 01/06/24 13:07 Pulse Oximetry 100 01/06/24 13:07 Oxygen Delivery Method Room Air 01/06/24 13:07 <Mary Anne Velasquez DO - Last Filed: 01/08/24 07:42> Initial Vital Signs Initial Vital Signs: Vital Signs Temperature 98 F 01/06/24 13:07 Pulse Rate 94 H 01/06/24 13:07 Respiratory Rate 20 01/06/24 13:07 Blood Pressure 152/65 H 01/06/24 13:07 Pulse Oximetry 100 01/06/24 13:07 Oxygen Delivery Method Room Air 01/06/24 13:07 Course <Peggy Hebert PA-C - Last Filed: 01/06/24 20:25> Orders Ordered: ED Orders 01/06/24 13:25 US pelvic complete Stat 01/06/24 13:28 Beta HCG, Quant [HCG Quantitative /Beta subunit] Stat Complete Blood Count AUTO DIFF Stat Comprehensive Metabolic Panel Stat Vital Signs Vital signs: Vital Signs - 8 hr 01/06/24 13:07 01/06/24 15:10 Temperature 98 F Pulse Rate 94 H 91 H Respiratory Rate 20 16 Blood Pressure 152/65 H 106/63 Pulse Oximetry 100 100 Oxygen Delivery Method Room Air Room Air <DO Olivia Goodrich Last Filed: 01/08/24 07:42> Orders Ordered: ED Orders 01/06/24 13:25 US pelvic complete Stat 01/06/24 13:28 Beta HCG, Quant [HCG Quantitative /Beta subunit] Stat Complete Blood Count AUTO DIFF Stat Comprehensive Metabolic Panel Stat Vital Signs Vital signs: Vital Signs - 8 hr 01/06/24 13:07 01/06/24 15:10 Temperature 98 F Pulse Rate 94 H 91 H Respiratory Rate 20 16 Blood Pressure 152/65 H 106/63 Pulse Oximetry 100 100 Oxygen Delivery Method Room Air Room Air MDM - OB/Uterine Contractions <Peggy Hebert PA-C - Last Filed: 01/06/24 20:25> Differential Diagnosis Differential diagnosis: Likely other (spotting in 1st trimester, incomplete , ectopic , non-viable , early ) Medical Records Attestation: I reviewed the patient's medical records. Lab Data Attestation: I reviewed the patient's lab results. 01/06/24 13:28 01/06/24 13:28 Labs: Lab Results 01/06/24 Range/Units 13:28 WBC 12.2 H (4.5-11.0) X10^3/uL RBC 4.41 (4.0-5.2) X10^6/uL Hgb 13.5 (12.0-16.0) g/dL Hct 41.1 (36-46) % MCV 93.3 (80-100) fL MCH 30.5 (26-34) PG MCHC 32.7 (30-36) % RDW 12.7 (11.6-14.8) % Plt Count 303 (150-400) X10^3/uL Neut % (Auto) 76.2 H (50-75) % Lymph % (Auto) 16.8 L (25-40) % [place] % (Auto) 6.4 (3-14) % Eos % (Auto) 0.4 L (2-4) % Baso % (Auto) 0.2 (0-2) % Neut # (Auto) 9300 H (6837-4499) /uL Lymph # (Auto) 2100 (5533-8651) /uL [place] # (Auto) 800 (0-900) /uL Eos # (Auto) 100 (0-450) /uL Baso # (Auto) 0 (0-100) /uL Sodium 138 (137-145) mmol/L Potassium 3.9 (3.4-5.1) mmol/L Chloride 105 (98-107) mmol/L Carbon Dioxide 25 (22-32) mmol/L BUN 12 (7-17) mg/dL Creatinine 0.55 (0.52-1.04) mg/dL Estimated GFR > 60 (>60) mL/min BUN/Creatinine Ratio 21.8 (6-22) Glucose 85 (70-100) mg/dL Calcium 9.0 (8.4-10.2) mg/dL Total Bilirubin 0.8 (0.2-1.3) mg/dL AST 31 (14-36) IU/L ALT 17 (<35) IU/L Alkaline Phosphatase 60 (38-126) U/L Total Protein 8.2 (6.3-8.2) g/dL Albumin 4.7 (3.5-5.0) g/dL Globulin 3.5 (1.7-4.1) g/dL Albumin/Globulin Ratio 1.3 (1.0-2.8) HCG, Quant 967.3 mIU/mL Urine Dip Bedside Urine Glucose Negative Bedside Urine Bilirubin - Negative Bedside Urine Ketone - Negative Urine Specific Snyder 1.030 Bedside Urine Occult Blood +++ Bedside Urine pH 5.5 Bedside Urine Protein - Negative Bedside Urine Urobilinogen - Negative Bedside Urine Nitrite - Negative Bedside Urine Leukocytes - Negative Esterase Imaging Data US - OB: My Impression: Agree with Radiology interpretation Radiologist's Impression: [place] [address] Ultrasound Report Signed Patient: So Cardoza MR#: [id number] : 1985 Acct:[id number] Age/Sex: 38 / F Date of Service: 01/06/24 Loc: ED Accession Number: [id number] Procedure: US pelvic complete Ordering Provider: Peggy Hebert P.A-C PROCEDURE: US OB <= 14 WEEKS FETUS INDICATIONS: spotting, LMP 11/22/2023; 6w4d OUTSIDE/PRIOR DATING DATA: Last menstrual period (LMP): November 22, 2023. LMP-based estimated date of delivery (HENRY): Not provided. Estimated date of delivery (HENRY) from first dating scan: Not applicable. TECHNIQUE: Real-time scanning was performed of the fetus and maternal pelvic organs, with image documentation. Endovaginal scanning was also performed to better visualize the fetus and maternal ovaries. COMPARISON: None. FINDINGS: Embryo: No intrauterine identified. No gestational sac, yolk sac or pole identified. Maternal organs: Uterus is anteverted. Uterus measures 9.4 x 4.9 x 5.2 centimeters. Endometrial complex measures 17.9 millimeters in thickness. Uterus echotexture is homogeneous. Right ovary measures 3.4 x 3.2 x 1.7 centimeters. There is a 1.4 x 0.9 x 1.1 centimeter complex cyst in the right ovary. Left ovary measures 2.2 x 3.2 x 1.2 centimeters. Left ovary is sonographically normal. Doppler evaluation demonstrates normal vascular flow in the ovaries. IMPRESSION: No intrauterine identified. Findings could be secondary to early , nonviable or occult ectopic . Recommend close clinical observation, correlation with serial beta HCG and short-term follow-up obstetrical ultrasound in 1-2 weeks. 1.4 x 0.9 x 1.1 centimeter complex right ovarian cyst. Finding could represent corpus luteal cyst or early ectopic . Recommend close clinical observation, correlation with serial beta HCG and short-term follow-up obstetrical ultrasound in 1-2 weeks. Dictated by: Yvonne Sheehan MD, PhD on 01/06/2024 at 14:35 Approved by: Yvonne Sheehan MD, PhD on 01/06/2024 at 14:40 MDM Narrative Medical decision making narrative: This is a well-appearing the somewhat anxious and concerned 38-year-old female who presents with concern for light spotting beginning last night in the context of positive test with last period 6 weeks ago. Labs ordered including CBC CMP and hCG quant, urine dip. Her CBC does not indicate significant blood loss, she has a mild leukocytosis consistent with early ; urine dip and other labs are unremarkable except for hCG see below. Ultrasound is also ordered and returns with no evidence of an IUP. Radiologist felt this could represent early , nonviable or possibly ectopic; note was made of a complex cyst in the right ovary possibly representing a corpus luteum versus ectopic. Patient's hCG was at 967 today. Pelvic exam is deferred as patient has only very mild crampy pelvic pain/no discharge and no significant pelvic bleeding. Discussed with the patient the potential cause of not seeing anything on her ultrasound today and counseled her the importance of having follow-up hCG level drawn in 2-3 days' time as well as following closely with PCP or dispatch coordinator for repeat ultrasound and further care; counseled the patient regarding symptoms to watch out for that could suggest internal bleeding or developing ectopic. Patient was previously seen here by Ob however that OB provider has left this hospital, she was advised to contact the dispatch coordinator office number here as she is a previous patient here and we hope she can be seen by another provider at this facility. Advised she may go to urgent care or return to emergency department for repeat labs/imaging if no other option available. Return precautions provided, follow-up plan discussed, all questions answered. <Mary Anne Velasquez, - Last Filed: 01/08/24 07:42> Lab Data Labs: Lab Results 01/06/24 Range/Units 13:28 WBC 12.2 H (4.5-11.0) X10^3/uL RBC 4.41 (4.0-5.2) X10^6/uL Hgb 13.5 (12.0-16.0) g/dL Hct 41.1 (36-46) % MCV 93.3 (80-100) fL MCH 30.5 (26-34) PG MCHC 32.7 (30-36) % RDW 12.7 (11.6-14.8) % Plt Count 303 (150-400) X10^3/uL Neut % (Auto) 76.2 H (50-75) % Lymph % (Auto) 16.8 L (25-40) % [place] % (Auto) 6.4 (3-14) % Eos % (Auto) 0.4 L (2-4) % Baso % (Auto) 0.2 (0-2) % Neut # (Auto) 9300 H (0045-1124) /uL Lymph # (Auto) 2100 (9757-9353) /uL [place] # (Auto) 800 (0-900) /uL Eos # (Auto) 100 (0-450) /uL Baso # (Auto) 0 (0-100) /uL Sodium 138 (137-145) mmol/L Potassium 3.9 (3.4-5.1) mmol/L Chloride 105 (98-107) mmol/L Carbon Dioxide 25 (22-32) mmol/L BUN 12 (7-17) mg/dL Creatinine 0.55 (0.52-1.04) mg/dL Estimated GFR > 60 (>60) mL/min BUN/Creatinine Ratio 21.8 (6-22) Glucose 85 (70-100) mg/dL Calcium 9.0 (8.4-10.2) mg/dL Total Bilirubin 0.8 (0.2-1.3) mg/dL AST 31 (14-36) IU/L ALT 17 (<35) IU/L Alkaline Phosphatase 60 (38-126) U/L Total Protein 8.2 (6.3-8.2) g/dL Albumin 4.7 (3.5-5.0) g/dL Globulin 3.5 (1.7-4.1) g/dL Albumin/Globulin Ratio 1.3 (1.0-2.8) HCG, Quant 967.3 mIU/mL Urine Dip Bedside Urine Glucose Negative Bedside Urine Bilirubin - Negative Bedside Urine Ketone - Negative Urine Specific Snyder 1.030 Bedside Urine Occult Blood +++ Bedside Urine pH 5.5 Bedside Urine Protein - Negative Bedside Urine Urobilinogen - Negative Bedside Urine Nitrite - Negative Bedside Urine Leukocytes - Negative Esterase Discharge Plan Departure Patient Disposition: Home Clinical Impression: Elevated serum hCG, Vaginal bleeding Activity Restrictions/Additional Instructions: *You have been diagnosed with [elevated serum hCG] *What to do: *Please continue to take your regular medications as directed. [ ] New medication prescriptions sent to your pharmacy: [ ] [ ] New medication written as a paper prescription [ X] No new medications given *Please follow up with your primary care provider in 2-3 days, call for an appointment. Let them know you were seen in the Emergency Department and that we ask that you be seen in follow up. We will electronically transmit a record of today's note if your PCP is in our system. You had a positive home test recently, we checked your blood levels of hCG today and they were 967. The ultrasound did not show anything within your uterus, which either means that it is too early in your for anything to be visible on ultrasound, or that this is a non viable that did not form a structure that is visible in the uterus. The last possibility is that you have something called an ectopic which means that is forming outside of the uterus. This last possibility is concerning as if this is the case it can cause significant symptoms and be life-threatening if it has not treated, at this point in time the recommendation is for you to have a repeat ultrasound in 1-2 weeks' time, and you should have your hCG blood levels rechecked in 2-3 days' time. You can do this with your primary care provider or your OB/women's health provider if you have 1 that you see currently. It is important to get your hCG levels rechecked so we can see if they are rising falling or staying the same as this will help to determine what is going on with the . If you do develop heavy bleeding or symptoms from heavy bleeding such as dizziness lightheadedness you should call 911 or seek re-evaluation in the emergency department. Similarly if you develop severe abdominal pain. Otherwise please follow-up as discussed above as you will need this additional labs and imaging in order to track the status of the and determine whether or not this is simply an early , a nonviable or an ectopic . *If you do not have a primary care provider please contact the [facility] Resource line at [phone]. They will ask some questions about your medical history and help get you set up with a doctor in the community. *Return to Emergency Department if you should have any new, worsening or concerning symptoms, such as [fever greater than 101 F, shaking chills, worsening pain, persistent vomiting or other bothersome symptoms] Prescriptions: No Action desog-e.estradiol/e.estradiol [Volnea (28)] 0.15-0.02 mgx21 /0.01 mg x 5 tablet See Rx Instructions .ROUTE .COMPLEX Qty: 84 4RF Dose Instruction: take one tablet by mouth DAILY for contraception; Take once daily at same time every day. Rx Instructions: take one tablet by mouth DAILY for contraception; Take once daily at same time every day. Referrals: Miscellaneous,Doctor, MD [Primary Care Provider] - Stand Alone Forms: Patient Portal/API ED Sign-out <Mary Anne Velasquez DO - Last Filed: 01/08/24 07:42> Cosign ED Attending Holly Attestation: I was available for consultation.
[2024-01-06 13:36] LABS: Add Manual Diff / Slide Review NO; Basophils Absolute Auto 0 /uL (0-100); Basophils Percent Auto 0.2 % (0-2); Eosinophils Absolute Auto 100 /uL (0-450); Eosinophils Percent Auto 0.4 % (2-4); Hematocrit 41.1 % (36-46); Hemoglobin 13.5 g/dL (12.0-16.0); Lymphocytes Absolute Auto 2100 /uL (1100-4500); Lymphocytes Percent Auto 16.8 % (25-40); Mean Corpuscular HGB Conc 32.7 % (30-36); Mean Corpuscular Hemoglobin 30.5 PG (26-34); Mean Corpuscular Volume 93.3 fL (80-100); Monocytes Absolute Auto 800 /uL (0-900); Monocytes Percent Auto 6.4 % (3-14); Neutrophils Absolute Auto 9300 /uL (1500-7000); Neutrophils Percent Auto 76.2 % (50-75); Platelet Count 303 X10^3/uL (150-400); Red Blood Cell Count 4.41 X10^6/uL (4.0-5.2); Red Cell Distribution Width 12.7 % (11.6-14.8); White Blood Cell Count 12.2 X10^3/uL (4.5-11.0)
[2024-01-06 13:58] LABS: Alanine Aminotransferase 17 IU/L (<35); Albumin 4.7 g/dL (3.5-5.0); Albumin Globulin Ratio 1.3 (1.0-2.8); Alkaline Phosphatase 60 U/L (38-126); Aspartate Aminotransferase 31 IU/L (14-36); BUN Creatinine Ratio 21.8 (6-22); Bilirubin Total 0.8 mg/dL (0.2-1.3); Blood Urea Nitrogen 12 mg/dL (7-17); Carbon Dioxide 25 mmol/L (22-32); Chloride 105 mmol/L (98-107); Estimated Glomerular Filt Rate > 60 mL/min (>60); Globulin 3.5 g/dL (1.7-4.1); Glucose 85 mg/dL (70-100); Potassium 3.9 mmol/L (3.4-5.1); Sodium 138 mmol/L (137-145); Total Protein 8.2 g/dL (6.3-8.2)
[2024-01-06 14:00] LABS: HEMOLYSIS 62 (0-50)
[2024-01-06 14:14] LABS: HCG Quantitative /Beta subunit 967.3 mIU/mL
[2024-01-06 15:10] VITALS: BP 106/63; PULSE 91; RESP 16; O2SAT 100
== END 2024-01-06 15:57 | disposition home or self-care (01) ==
PROVIDERS: Emergency Provider Student in an Organized Health Care Education/Training Program
DX: O20.9 Hemorrhage in early pregnancy, unspecified (principal); Z3A.01 Less than 8 weeks gestation of pregnancy; R79.89 Other specified abnormal findings of blood chemistry
CPT/HCPCS: 36415; 76830; 76856; 80053; 81003; 84702; 85025; 99284

== ENCOUNTER → 2024-01-08 10:19 | Outpatient (CLI) | payer OTHER, SELFPAY ==
[2024-01-08 11:28] LABS: HCG Quantitative /Beta subunit 307.1 mIU/mL
== END ==
PROVIDERS: Referring Provider Specialist; Visit Provider Specialist
DX: O26.859 Spotting complicating pregnancy, unspecified trimester (principal)
CPT/HCPCS: 36415; 84702

== ENCOUNTER → 2024-01-25 09:18 | Outpatient (CLI) | payer OTHER, SELFPAY | PROVIDERS: Visit Provider Nurse Practitioner Family | DX: R30.0 Dysuria (principal) | CPT/HCPCS: 87077; 87086; 87186 ==

== ENCOUNTER → 2024-01-26 14:28 | Outpatient (CLI) | payer OTHER, SELFPAY ==
[2024-01-26 15:53] LABS: HCG Quantitative /Beta subunit < 2.4 mIU/mL
== END ==
PROVIDERS: Referring Provider Specialist; Visit Provider Specialist
DX: O03.4 Incomplete spontaneous abortion without complication (principal)
CPT/HCPCS: 36415; 84702

== ENCOUNTER → 2024-05-18 14:50 | Outpatient (CLI) | payer OTHER, SELFPAY | PROVIDERS: Visit Provider Physician Assistant Surgical | DX: R30.0 Dysuria (principal) | CPT/HCPCS: 87077; 87086; 87147 ==

== ENCOUNTER → 2024-06-15 14:30 | Outpatient (CLI) | payer OTHER, SELFPAY | PROVIDERS: Visit Provider Nurse Practitioner Family | DX: R30.0 Dysuria (principal) | CPT/HCPCS: 87077; 87086; 87186 ==

== ENCOUNTER → 2024-09-21 15:13 | Outpatient (CLI) | payer OTHER, SELFPAY | PROVIDERS: Visit Provider Physician Assistant Medical | DX: J02.9 Acute pharyngitis, unspecified (principal); N92.6 Irregular menstruation, unspecified | CPT/HCPCS: 87070 ==

== ENCOUNTER → 2024-11-25 11:15 | Outpatient (CLI) | payer OTHER, SELFPAY | PROVIDERS: Visit Provider Student in an Organized Health Care Education/Training Program | DX: N94.9 Unspecified condition associated with female genital organs and menstrual cycle (principal); R30.0 Dysuria | CPT/HCPCS: 87077; 87086; 87186; 87210 ==

== ENCOUNTER → 2025-02-01 10:12 | Outpatient (CLI) | payer OTHER, SELFPAY ==
--- NOTE | 2025-02-01 10:13 | DI.US.S_ITS ---
PROCEDURE: US OB <= 14 WEEKS FETUS INDICATIONS: Dating and viability OUTSIDE/PRIOR DATING DATA: Last menstrual period (LMP): November 11, 2024 LMP-based estimated date of delivery (HENRY): August 18, 2025. First dating scan (date and location): February 01, 2025 and [facility]. Estimated date of delivery (HENRY) from first dating scan: August 16, 2025. TECHNIQUE: Real-time scanning was performed of the fetus and maternal pelvic organs, with image documentation. COMPARISON: None FINDINGS: Embryo: There is a single living intrauterine gestation with an approximate age of 12 weeks and 1 day based on crown-rump length. Heart rate: 152 beats per minute Maternal organs: Ovaries are unremarkable. IMPRESSION: Single living intrauterine gestation with an age of 12 weeks and 1 day +/-1 week based on crown-rump length. We strive to produce accurate, complete, and clear reports of imaging services. To assist us in improving patient care, this report was composed using standard report templates and voice recognition software. Therefore, it may contain abnormal punctuation, insertions and/or omissions. Occasional wrong-word or sound-alike substitutions may occur. Though we review the report and make efforts to correct it, we do recommend that the report be read carefully in proper context to recognize any text inaccuracies. Dictated by: Donny Francisco M.D. on 02/01/2025 at 11:14 Approved by: Donny Francisco M.D. on 02/01/2025 at 11:22
== END ==
LOC: US 10:12
PROVIDERS: Referring Provider Student in an Organized Health Care Education/Training Program; Visit Provider Student in an Organized Health Care Education/Training Program
DX: Z34.81 Encounter for supervision of other normal pregnancy, first trimester (principal); Z3A.12 12 weeks gestation of pregnancy
CPT/HCPCS: 76801

== ENCOUNTER → 2025-04-01 11:25 | Outpatient (CLI) | payer OTHER, SELFPAY ==
[2025-04-01 12:27] LABS: Add Manual Diff / Slide Review NO; Basophils Absolute Auto 0 /uL (0-100); Basophils Percent Auto 0.2 % (0-2); Eosinophils Absolute Auto 0 /uL (0-450); Eosinophils Percent Auto 0.3 % (2-4); Hematocrit 34.5 % (36-46); Hemoglobin 11.9 g/dL (12.0-16.0); Lymphocytes Absolute Auto 1700 /uL (1100-4500); Lymphocytes Percent Auto 20.4 % (25-40); Mean Corpuscular HGB Conc 34.6 % (30-36); Mean Corpuscular Hemoglobin 32.4 PG (26-34); Mean Corpuscular Volume 93.6 fL (80-100); Monocytes Absolute Auto 400 /uL (0-900); Monocytes Percent Auto 4.9 % (3-14); Neutrophils Absolute Auto 6300 /uL (1500-7000); Neutrophils Percent Auto 74.2 % (50-75); Platelet Count 300 X10^3/uL (150-400); Red Blood Cell Count 3.68 X10^6/uL (4.0-5.2); Red Cell Distribution Width 12.3 % (11.6-14.8); White Blood Cell Count 8.5 X10^3/uL (4.5-11.0)
[2025-04-02 09:09] LABS: Varicella IgG Antibody Reactive (Non Reactive)
[2025-04-02 15:23] LABS: Hep C Virus Ab w/Reflex Quant NEGATIVE s/c (NEGATIVE); Hepatitis B Surface Antigen NEGATIVE s/c (NEGATIVE)
[2025-04-02 15:24] LABS: HIV 1 & 2 Ab/Ag 4th Gen Combo NEGATIVE (NEGATIVE); Rubella Antibody IgG 48.2 IU/mL (>15)
== END ==
PROVIDERS: Referring Provider Student in an Organized Health Care Education/Training Program; Visit Provider Student in an Organized Health Care Education/Training Program
DX: Z34.80 Encounter for supervision of other normal pregnancy, unspecified trimester (principal)
CPT/HCPCS: 36415; 80055; 86787; 86803; 86850; 86900; 86901; 87086; 87389

== ENCOUNTER → 2025-04-26 14:51 | Outpatient (CLI) | payer OTHER, SELFPAY ==
--- NOTE | 2025-04-26 14:52 | DI.US.S_ITS ---
PROCEDURE: US OB >= 14 WEEKS FETUS INDICATIONS: 20 week anatomy scan OUTSIDE/PRIOR DATING DATA: Last menstrual period (LMP): 11/21/2024. LMP-based estimated date of delivery (HENRY): 08/18/2025. First dating scan (date and location): 02/01/2025. Estimated date of delivery (HENRY) from first dating scan: 08/18/2025. TECHNIQUE: Real-time scanning was performed of the fetus, with image documentation and biometric measurements. Endovaginal scanning: COMPARISON: [facility], US, US OB >= 14 WEEKS FETUS, 07/21/2020, 10:11. FINDINGS: General: A single living intrauterine gestation is present. Presentation: Variable. Placenta: Placental position is anterior , without previa. Normal >2 cm. Low lying is <2 cm to the edge. Previa covers the internal os. Amniotic fluid index: 18.4 cm, normal range is 5-24 cm. Single deepest vertical pocket is 4.8 cm. heart rate: 147 beats per minute. Maternal cervical canal: 5.9 cm long. Normal lower limit is 2.5 cm. Report any funneling of internal cervical os: % of canal length, shape (U or V), width or any U-shaped funneling. biometrics: Biparietal diameter: 5.9 Head circumference: 21.8 Abdominal circumference: 18.2 Femur length: 4.2 Clinically estimated gestational age: 23 weeks 5 days Composite gestational age from present scan: 23 weeks 5 days Estimated weight and percentile: 592 g Anatomic survey: Neuro: Ventricles are non-dilated at less than 10 mm. Cisterna magna is normal at 3-11 mm. Cerebellum is normal in size and morphology. Nuchal skin fold: Normal at less than 6 mm between 14-21 weeks gestational age. Face: Nose and lips, facial profile are normal. Spine: No evidence for spina bifida. Heart: 4-chambered heart is present, with normal ventricular outflow tracts. Diaphragm: Diaphragm is intact. Stomach: Left-sided stomach is present. Kidneys: No hydronephrosis. Normal is less than 5 mm in 2nd trimester, less than 7 mm in 3rd trimester. Cord: 3-vessel cord has orthotopic insertion. Bladder: Normal in size. Extremities: All 4 extremities identified. There is limited imaging of the four-chamber heart, outflow tracts and profile secondary to position. IMPRESSION: Single live intrauterine corresponds with an estimated gestational age of 23 weeks and 5 days based on measurements provided today. We strive to produce accurate, complete, and clear reports of imaging services. To assist us in improving patient care, this report was composed using standard report templates and voice recognition software. Therefore, it may contain abnormal punctuation, insertions and/or omissions. Occasional wrong-word or sound-alike substitutions may occur. Though we review the report and make efforts to correct it, we do recommend that the report be read carefully in proper context to recognize any text inaccuracies. Dictated by: Cecille Ness M.D. on 04/27/2025 at 9:57 Approved by: Cecille Ness M.D. on 04/27/2025 at 10:00
== END ==
LOC: US 14:52
PROVIDERS: Referring Provider Student in an Organized Health Care Education/Training Program; Visit Provider Student in an Organized Health Care Education/Training Program
DX: Z34.82 Encounter for supervision of other normal pregnancy, second trimester (principal); Z3A.23 23 weeks gestation of pregnancy
CPT/HCPCS: 76811

== ENCOUNTER → 2025-06-13 12:15 | Outpatient (CLI) | payer OTHER, SELFPAY ==
[2025-06-13 13:42] LABS: Hematocrit 34.8 % (36-46); Hemoglobin 11.6 g/dL (12.0-16.0)
== END ==
PROVIDERS: Referring Provider Student in an Organized Health Care Education/Training Program; Visit Provider Student in an Organized Health Care Education/Training Program
DX: Z13.0 Encounter for screening for diseases of the blood and blood-forming organs and certain disorders involving the immune mechanism (principal)
CPT/HCPCS: 85014; 85018

== ENCOUNTER 2025-07-03 10:55 | Outpatient (CLI) | payer OTHER, SELFPAY | END 2025-07-03 11:44 | disposition home or self-care (01) | LOC: OB 07-04 11:00 | PROVIDERS: Referring Provider Student in an Organized Health Care Education/Training Program; Visit Provider Student in an Organized Health Care Education/Training Program | DX: O26.853 Spotting complicating pregnancy, third trimester (principal); O36.8130 Decreased fetal movements, third trimester, not applicable or unspecified; Z3A.33 33 weeks gestation of pregnancy | CPT/HCPCS: 59025; G0378; G0379 ==

== ENCOUNTER → 2025-07-20 09:40 | Outpatient (CLI) | payer OTHER, SELFPAY ==
[2025-07-21 10:42] LABS: Strep Grp B PCR NEG for Grp B Strep
== END ==
PROVIDERS: Visit Provider Obstetrics & Gynecology
DX: Z34.80 Encounter for supervision of other normal pregnancy, unspecified trimester (principal); Z3A.35 35 weeks gestation of pregnancy
CPT/HCPCS: 87653

== ENCOUNTER → 2025-08-05 10:42 | Outpatient (CLI) | payer OTHER, SELFPAY ==
--- NOTE | 2025-08-05 10:43 | DI.US.S_ITS ---
PROCEDURE: US OB FOLLOW UP INDICATIONS: lmt image of 4 chamber heart, outflow tracts, profile OUTSIDE/PRIOR DATING DATA: Pepe Mathis HENRY: 08/18/2025 TECHNIQUE: Real-time scanning was performed of the fetus, with image documentation and biometric measurements. Endovaginal scanning: Not obtained COMPARISON: [facility], , OB >= 14 WEEKS FETUS, 04/26/2025, 15:06. FINDINGS: General: A single living intrauterine gestation is present. Presentation: Vertex. Placenta: Placental position is anterior , without previa. Amniotic fluid index: 13 cm, normal range is 5-24 cm. Single deepest vertical pocket is 8.6 cm. heart rate: 132 beats per minute. Maternal cervical canal: Not well seen biometrics: Clinically estimated gestational age: 38 weeks 1 day Other: Heart and outflow tracts are within normal limits. Facial profile and orbits are not well seen. IMPRESSION: Single live intrauterine with gestational age today of 38 weeks 1 day. Outflow tracts and four-chamber heart are within normal limits. Profile and orbits remain not well seen. We strive to produce accurate, complete, and clear reports of imaging services. To assist us in improving patient care, this report was composed using standard report templates and voice recognition software. Therefore, it may contain abnormal punctuation, insertions and/or omissions. Occasional wrong-word or sound-alike substitutions may occur. Though we review the report and make efforts to correct it, we do recommend that the report be read carefully in proper context to recognize any text inaccuracies. Dictated by: Flora Torres M.D. on 08/05/2025 at 16:16 Approved by: Flora Torres M.D. on 08/05/2025 at 16:18
== END ==
LOC: US 10:43
PROVIDERS: Referring Provider Student in an Organized Health Care Education/Training Program; Visit Provider Student in an Organized Health Care Education/Training Program
DX: Z36.2 Encounter for other antenatal screening follow-up (principal); Z3A.38 38 weeks gestation of pregnancy
CPT/HCPCS: 76816

== ENCOUNTER 2025-08-15 08:46 | Inpatient (IN) | payer OTHER, SELFPAY ==
--- NOTE | 2025-08-15 09:55 | PM.OBHP.IH.1 ---
OB HPI Date/Time Date of admission: 08/15/25 Date Patient Seen: 08/15/25 Time Patient Seen: 09:56 History of Present Condition Chief complaint: INPT C SECTION HENRY Calculator Estimated Delivery Date Method Current WG Current Estimate 08/18/25 LMP (Certain) 39w 4d Other Estimates 08/15/25 Ultrasound #1 40w 0d Narrative: 39yo at 39+4wks admitted for repeat . care: good care Dating criteria OB: LMP confirmed by 1st trimester US Ultrasounds: normal mid trimester US Narrative: Ultrasound Ultrasound Details:: Dating US 02/01/25 (done in DI): [place] IUP with CRL 12+1wks, +FCA, normal appearing ovaries Anatomy US 04/26/25: anterior placenta, growth at gestational age, limited cardiac/profile views Expected Delivery Route/Plan Repeat C/S w/ scar revision w/ bilateral salpingectomy Specific Issues/Plans Declines aneuploidy screening Advanced maternal age Hx of c/s with G2--> planned repeat C/S w/ keloid scar revision & kenalog injection with bilateral salpingectomy [x] consent; scheduled for 08/15/25 at 39+4wks René Assigned to Brendan Indications Operative indications ( section): previous uterine surgery Preadmission Labs Last OB Lab Results: Blood Type O Positive 04/01/25, 11:58 Antibody Screen Negative 04/01/25, 11:58 Hct, (36-46) 34.8 % L 06/13/25, 12:24 Hgb, (12.0-16.0) 11.6 g/dL L 06/13/25, 12:24 Hep Bs Antigen, (NEGATIVE) Negative s/c 04/01/25, 11:58 Hepatitis C Antibody, (NEGATIVE) Negative s/c 04/01/25, 11:58 Rubella Antibody, (>15) 48.2 IU/mL 04/01/25, 11:58 VZV IgG Antibody, (Non Reactive) Reactive 04/01/25, 11:58 Glucose 1 Hr 50 gm, (76-139) 107 mg/dL 06/08/25, 13:20 Group B Strep (PCR) Neg for grp b strep 07/20/25, 09:40 Glucose Tolerance Testin hr (negative) -: Chlamydia screen: negative, Gonorrhea screen: negative and Urine: negative -: PAP smear: Normal External Labs -: Urine: negative Prior (ies) Past Pregnancies Del. Date GA/Weeks Labor Lgth Wt Sex Route Outcome Anesthesia Place Delv Breastfeed Preg Comp Name 02/06/11 38.5 7 5 lb 14 oz Female vaginal vacuum live - full term epidural IH [place] (Dr Levy) x few weeks:baby reacted Alivia 07/24/20 40+ 2 7 lb Male live - full term epidural IH ~6 weeks Lj 03/06/23 6-7 elective 01/05/24 ~6 spontaneous Delivery Date: 03/06/23 Last Updated by: Marjan Shukla RN PO meds only, no complications Delivery Date: 01/05/24 Last Updated by: Marjan Shukla RN passed spontaneously, no complications Evaluation Evaluation Baseline heart rate: 130 Variability: Moderate (6-25) monitor accelerations: Present Monitor Decelerations: Absent Contraction Frequency (minutes): 5 Status: Category l PFSH Medical History (Updated 02/18/25 @ 10:01 by Shilpi Cardona DO) Chicken pox delivery delivered Febrile seizure Thumb fracture Depression Abnormal Pap smear of cervix (2013) Vaginal delivery Surgical History (Updated 02/03/25 @ 13:10 by Marjan Shukla RN) H/O section [place] teeth removed (~2004) Family History (Updated 02/03/25 @ 13:11 by Marjan Shukla RN) Mother No problems noted. Father Hypertension Grandfather Tuberculosis Grandmother No problems noted. Grandfather Diabetes mellitus Myocardial infarction Grandmother Cancer Uncle Diabetes mellitus Social History marital status: number of children: 2 household members: spouse and children lives independently: Yes caregiver/support person: Yes housing: condominium pets and animals: No education level: college occupational status: employed current occupational exposures/hazards: No special radha needs: No travel history: over 6 months ago seatbelt use: always water heater temp set < 120 deg: Yes working smoke detector in home: Yes fire extinguisher in home: No carbon monox detector in home: Yes firearms in home: No do you feel safe at home: Yes Tobacco: How many years used: 15 quit status: not considering quitting second hand exposure: Yes ( smokes and aware) alcohol intake: former substance use type: does not use and marijuana during the past year weight has: remained stable well-balanced diet: rarely or never daily servings fruits/ve-1 caffeine: Yes (single 12 oz soft drink daily) Type(s) of exercise: none Meds Home Medications and Allergies Home Medications ?Medication ?Instructions ?Recorded ?Confirmed ?Type vitamin-ferrous sulfate tab PO 02/03/25 07/26/25 History 27 mg iron-folic acid 0.8 mg tablet [facility] medical supply #1 ea 04/21/25 07/26/25 Rx Allergies Allergy/AdvReac Type Severity Reaction Status Date / Time No Known Drug Allergies Allergy Verified 07/26/25 09:05 Review of Systems Review of Systems ROS: Yes All systems reviewed with the patient and are negative except as otherwise documented OB Exam Vital signs Blood Pressure: 126/69 Pulse Rate: 81 HENMT Head: normal to inspection and normocephalic Eyes General: appearance normal, both eyes and all related structures Resp Effort & Inspection: normal respiratory effort and able to speak in complete sentences Extremities Lower extremity: Yes normal to inspection GI Inspection: normal to inspection Other: gravid, nontender, nondistended Assessment and Plan Assessment and Plan Assessment and Plan narrative: 39yo at 39+4wks admitted for repeat . -CBC, T&S on admission -NST on admission -neuraxial anesthesia -GBS neg, plan for 2g Ancef for surgical ppx -PPH risk low -VTE risk low, SCDs with epidural -will move to OR for delivery once all teams ready counseling: It was explained to the patient that a section is a surgery to deliver the baby through an incision in the abdominal wall and uterus.? All procedures can be associated with risk and unforeseen complications, which can be immediate or delayed.? Risks and complications of section include, but are not limited to:? infection of the uterus, pelvic organs, or skin; inadvertent injury to internal organs such as the bowel, bladder, or possibly even the baby; blood loss, transfusion, and/or life-threatening hemorrhage requiring hysterectomy; blood clots in the legs, pelvic organs, or lungs; adverse reaction to medications or anesthesia during surgery; development of placenta accreta spectrum in a subsequent ; and increased risk of section in a subsequent . Time-Based Coding :: [30min] spent with patient and on the chart (including review of chart, obtaining history, exam, reviewing outside data, placing orders, documenting exam and treatment plan, and counseling patient) on [08/15/25].
[2025-08-15] MEDS: LACTATED RINGERS 1,000 ML 999 ML IV (10:00)
[2025-08-15 10:04] VITALS: BP 126/69; PULSE 81
[2025-08-15] MEDS: CITRIC ACID/SODIUM CITRATE 15 ML SOLUTION 30 ML PO (10:18)
[2025-08-15] MEDS: ONDANSETRON 4 MG/2 ML INJ IV ×2 (10:18→20:49)
[2025-08-15 10:26] LABS: Add Manual Diff / Slide Review NO; Hematocrit 38.8 % (36-46); Hemoglobin 13.1 g/dL (12.0-16.0); Lymphocytes Absolute Auto 2200 /uL (1100-4500); Mean Corpuscular HGB Conc 33.6 % (30-36); Mean Corpuscular Hemoglobin 32.4 PG (26-34); Mean Corpuscular Volume 96.3 fL (80-100); Platelet Count 287 X10^3/uL (150-400)
[2025-08-15] MEDS: TRIAMCINOLONE 40 MG/ML VIAL 20 MG INJ (11:24)
[2025-08-15] MEDS: LIDOCAINE 1% 20 ML INJ (11:28)
[2025-08-15] MEDS: TRIAMCINOLONE 40 MG/ML VIAL INJ (11:30)
--- NOTE | 2025-08-15 11:46 | SUR.OPER ---
FHR: 128. Viable baby boy born at 1137. Mom and Dad at bedside. Placenta delivered at 1139. Placenta and cord blood sent with baby to center.
[2025-08-15 12:24] VITALS: BP 120/63; PULSE 79; RESP 14; TEMP 36.2; O2SAT 100
--- NOTE | 2025-08-15 12:27 | P.OP_ITS ---
Operative Date/Time/Diagnoses
--- NOTE | 2025-08-15 12:27 | PM.OBCS.1 ---
Operative Date/Time/Diagnoses Date of procedure: 08/15/25 Time of procedure: 11:00 Pre-op diagnosis: 1. [place] intrauterine gestation at 39+4 weeks 2. History of delivery 3. Undesired future fertility 4. Keloid scar formation 5. Advanced maternal age Post-op diagnosis: same Procedure & Clinicians Procedure: Repeat low transverse section Bilateral salpingectomy Keloid scar revision Same procedure(s) as scheduled: Yes Indications: 39-year-old at 39+4 weeks admitted for the above procedures. Surgeon: Shilpi Cardona Click Yes if Unassisted: No Sign Hanger Supervisor: Areli Snow Reason for Sign Hanger Supervisor: Sign Hanger Supervisor was necessary for timely, efficient, and safe completion of the procedure. She assisted with retraction, delivery of the baby, suction, and cutting suture. Anesthesia Type: Spinal Operative Notes Findings: Normal-appearing uterus and bilateral fallopian tubes and ovaries. Clear fluid noted with AROM. Delivery productive of a viable male in cephalic presentation with APGARs 8/9 and weighing 3203g. Specimen(s): cord blood and tubes/segments of tubes Intraoperative meds administered: Acetaminophen, Duramorph, Ketorolac and Pitocin Applied: Catheter Estimated Blood Loss (mL): 750 Blood products transfused: none Procedure in detail: The risks, benefits, indications and alternatives of the procedure were reviewed with the patient and informed consent was obtained. The patient was taken to the operating room where spinal anesthesia was obtained without difficulty and was found to be adequate. Sequential compression devices were placed bilaterally for VTE prophylaxis. She was then prepped and draped in the normal, sterile fashion in the dorsal supine position with a leftward tilt. She received 2g Ancef for surgical prophylaxis. A Pfannenstiel skin incision was then made with the scalpel, and the previous keloid scar was excised. The incision was then carried through to the underlying layer of fascia. The fascia was incised in the midline and the incision extended laterally with the Escamilla scissors and Bovie cautery. The inferior aspect of the fascial incision was grasped with Ivonne clamps, elevated, and the underlying rectus muscles were dissected off sharply with a scalpel. Attention was then turned to the superior aspect of the incision, which, in a similar fashion, was grasped, tented up with Ivonne clamps and the rectus muscles were dissected off sharply with a scalpel. The rectus muscles were then at the midline. The peritoneum was identified, and entered digitally. The peritoneal incision was then extended horizontally, superiorly and inferiorly, with good visualization of the bladder. The Sincere retractor was then inserted. The vesicouterine peritoneum was then identified, grasped with pick-ups, and entered sharply with Metzenbaum scissors. This incision was then extended laterally and the bladder flap was created digitally. The lower uterine segment was incised in a transverse fashion with the scalpel. The uterine incision was then extended manually in a cephalad/caudad direction. The amniotic sac was artificially ruptured, productive of clear fluid. The ?s head delivered atraumatically through the hysterotomy without difficulty, followed by the body.? The cord was doubly clamped and cut after a 60sec delay with the infant handed off to the waiting pediatrics team. The placenta was then removed spontaneously with gentle traction on the umbilical cord. The uterus was then exteriorized and cleared of all clots and debris. The uterine incision was repaired with 0-vicryl in a running, locked fashion with excellent hemostasis achieved. The right fallopian tube was then grasped with Allyssa clamps. The impact LigaSure was used to clamp, cut, and ligate the right fallopian tube with ultimate excision and removal. The same procedure was then completed on the left side. Both cautery lines were inspected and were hemostatic. The paracolic gutters were cleared of all clot and debris. The Sincere retractor was then removed. The fascia was reapproximated with 0-vicryl in a running fashion. The subcutaneous layer was closed with 3-0 vicryl in simple, interrupted sutures. One mL of Kenalog 40mg/ml was diluted with 5mL of 1% lidocaine, and this mixture was then injected along the skin incision. The skin was closed with 4-0 monocryl in a subcuticular fashion. The incision was then dressed with steri-strips and a pressure dressing was applied. At the completion of the case, a Crede maneuver was performed with good uterine tone and minimal vaginal bleeding noted.? The patient tolerated the procedure well. Sponge, lap and needle counts were correct x3. The patient was taken to the recovery room in stable condition. Complications: none Baby 1: Delivery Date: 08/15/25 Delivery Time: 11:37 Infant Gender: Male Presentation: vertex Post-operative Condition: stable Disposition: PACU Aftercare: routine postop
[2025-08-15 12:30] VITALS: BP 121/65; PULSE 18; RESP 77; O2SAT 99
[2025-08-15 12:35] VITALS: BP 122/71; PULSE 80; RESP 14; O2SAT 99
[2025-08-15 12:40] VITALS: BP 125/70; PULSE 77; RESP 16; TEMP 36.2; O2SAT 98
[2025-08-15] MEDS: ACETAMINOPHEN 325 MG TABLET 650 MG PO ×2 (14:08→20:03)
[2025-08-15] MEDS: KETOROLAC 30 MG/ML VIAL IV (18:03)
[2025-08-16] MEDS: KETOROLAC 30 MG/ML VIAL IV (00:06)
[2025-08-16] MEDS: ACETAMINOPHEN 325 MG TABLET 650 MG PO ×3 (02:01→15:06)
[2025-08-16 06:41] LABS: Add Manual Diff / Slide Review NO; Hematocrit 29.0 % (36-46); Hemoglobin 9.9 g/dL (12.0-16.0); Lymphocytes Absolute Auto 1800 /uL (1100-4500); Mean Corpuscular HGB Conc 34.0 % (30-36); Mean Corpuscular Hemoglobin 32.4 PG (26-34); Mean Corpuscular Volume 95.5 fL (80-100); Platelet Count 235 X10^3/uL (150-400)
[2025-08-16] MEDS: PRENATAL VIT,CALC/IRON/FOLIC 1 TABLET 1 TAB PO (10:26)
[2025-08-16] MEDS: DOCUSATE 100 MG CAPSULE PO (10:27)
[2025-08-16] MEDS: FERROUS SULFATE 325 MG TABLET PO (10:32)
--- NOTE | 2025-08-16 11:38 | PM.OBDS.1 ---
Discharge Providers Provider Date of admission: 08/15/25 08:46 Discharge Date: 08/16/25 Consults: 08/15/25 13:56 Consult to Cath Lab Radiological Technologist Routine Comment: Discharge provider: Shilpi Cardona DO Summary Hospital Course Date Patient Seen: 08/16/25 Time Patient Seen: 11:38 Diagnoses: Term gestation at 39+4wks History of prior section Undesired future fertility Advanced maternal age History of keloid scar Hospital Course: 39yo [id number] admitted at 39+4wks for planned repeat . Her delivery was uncomplicated, and productive of a viable male infant. Her course was unremarkable. On post-op day #1, she was ambulating, tolerating regular diet, voiding spontaneously with minimal lochia. Her pain was well controlled with oral medications, thus she was discharged to home on post-op day #1. Peripartum Data Infant Delivery Method: Section Procedures: External monitoring Spinal anesthesia Repeat low transverse section Bilateral salpingectomy Keloid scar revision complications: none 1: Gender: Male Disposition of : home Discharge Diagnosis (1) delivery delivered: Status: Acute (2) Delivery outcome of single liveborn : Status: Acute (3) Acute postoperative anemia due to expected blood loss: Status: Acute (4) Sterilization procedure performed: Status: Acute (5) Scarring, keloid: Status: Acute (6) Advanced maternal age (AMA) in : Status: Acute (7) 39 weeks gestation of : Status: Acute Status at Discharge Cognitive/behavioral status at discharge: oriented Functional status at discharge: independent ambulation Overall status at discharge: patient is progressing back to baseline Time Spent with Patient Time attestation: Total time spent providing and/or coordinating discharge services: Time spent: Less than 30 minutes Objective Labs 08/16/25 06:30 Labs: Laboratory Results - last 24 hr 08/16/25 06:30 WBC 18.0 H D RBC 3.04 L Hgb 9.9 L Hct 29.0 L MCV 95.5 MCH 32.4 MCHC 34.0 RDW 13.1 Plt Count 235 Neut % (Auto) 81.8 H Lymph % (Auto) 9.8 L [place] % (Auto) 7.8 Eos % (Auto) 0.0 L Baso % (Auto) 0.6 Neut # (Auto) 62528 H Lymph # (Auto) 1800 [place] # (Auto) 1400 H Eos # (Auto) 0 Baso # (Auto) 100 Exam Vital Signs (past 8 hours): Oxygen Delivery Method Room Air vitals reviewed in OBIX, within normal parameters; afebrile Const General: cooperative, healthy appearing, comfortable and No acute distress Resp Effort & Inspection: normal respiratory effort and able to speak in complete sentences GI Inspection: normal to inspection Other: fundus firm and nontender at U-2 Skin General: no rashes or lesions noted Other: Pfannenstiel incision clean/dry/intact with steri-strips in place Neuro General: patient alert and patient awake Extrem General: normal to inspection, no pedal edema and no calf tenderness Psych Mood: congruent mood Affect: normal affect Discharge Plan Discharge Plan Patient Disposition: Home Provider Discharge Comment: Take ibuprofen 600mg every 6hrs and acetaminophen 650mg every 6hrs for pain. Use oxycodone 5mg every 4hrs as needed for severe pain. Avoid lifting greater than 20lbs for at least 6 weeks. Avoid placing anything in the vagina for 6 weeks. Take an oral iron supplement every other day for the next 3 months. Discharge orders & Medications Prescriptions: New oxycodone 5 mg Tablet 5 mg PO Q4H PRN (Reason: Pain, Moderate (4-6)) Qty: 10 0RF Continued vit-ferrous sulfat-FA 27 mg iron- 0.8 mg tablet 1 tab PO DAILY Follow up/Referrals: Shilpi Cardona DO [Physician, [employer]] Diet/Activity/Treatments Diet: Diet as Tolerated Activity: Ambulate as tolerated. Skin/Wound/Dressing Care Skin care: You may shower normally. Report to your healthcare provider any signs of infection, such as:: chills, fever, increased pain, unusual drainage and unusual redness Dressing: The steri-strips on your incision will peel off after about 1 week. Visit Report/Discharge Packet Instructions: Anemia: How Food and Vitamins Can Help, DI for , DI for Prescription Opioid Use Stand Alone Forms: Patient Portal/API, Stroke Signs & Symptoms
[2025-08-16] MEDS: IBUPROFEN 600 MG TABLET PO (12:30)
[2025-08-16 15:59] VITALS: BP 98/55; PULSE 79; RESP 18; TEMP 36.8
== END 2025-08-16 17:15 | disposition home or self-care (01) | DRG 785 ==
PROVIDERS: Admitting Provider Student in an Organized Health Care Education/Training Program; Referring Provider Student in an Organized Health Care Education/Training Program; Visit Provider Student in an Organized Health Care Education/Training Program
PROC: 10D00Z1 Extraction of Products of Conception, Low, Open Approach (ICD-10-PCS; CPT 59514; principal; 2025-08-15 10:45)
DX: O34.211 Maternal care for low transverse scar from previous cesarean delivery (principal); Z30.2 Encounter for sterilization; Z3A.39 39 weeks gestation of pregnancy; Z37.0 Single live birth
CPT/HCPCS: 36415; 59050; 85025; 86850; 86900; 86901; J1100; J1885; J2274; J2405; J7120

== ENCOUNTER → 2025-08-22 15:32 | Outpatient (CLI) | payer OTHER, SELFPAY | PROVIDERS: Visit Provider Student in an Organized Health Care Education/Training Program | DX: N39.0 Urinary tract infection, site not specified (principal) | CPT/HCPCS: 87086 ==